=== PATIENT | male | born 1960 | race Caucasian/White ===

== ENCOUNTER → 2019-01-20 14:23 | Outpatient (CLI) | payer BC ==
[~2019-01-20 14:23] MED LIST: BAYER CHEWABLE81 MG PO; FLINTSTONE1 TAB.CHEW PO; LOPID600 MG PO
--- NOTE | 2019-01-26 18:38 | EC ---
PATIENT:ANGELINA ESPOSITO DATE OF SERVICE: 01/20/19 SEX: M MEDICAL RECORD: [id number] DATE OF : 56 LOCATION:[facility] AGE OF PATIENT: 58 ADMISSION DATE: 01/20/19 REFERRING PHYSICIAN: INTERPRETING PHYSICIAN: RAMÓN VELA MD ECHOCARDIOGRAM REPORT ECHO CHARGES 4 ECHO COMPLETE Date: 01/20/19 CLINICAL DIAGNOSIS: PALPITATIONS ECHOCARDIOGRAPHIC MEASUREMENTS (adult normal given) AC root (d.<3.7cm) 3.4 cm LV Septum d (<1.2 cm> 1.1 cm Valve Excursion 2.3 cm LV Septum (systole) 1.8 cm Left Atria (s.<4.0cm> 4.2 cm LVPW d(<1.2cm) 1.2 cm RV (d.<2.3cm) 2.9 cm LVPW (sytole) 2.1 cm LV diastole(<5.6CM) 5.1 cm MV E-F(>70mm/sec) cm LV systole 2.3 cm LVOT Diameter 2.2 cm MV exc.(>10mm) cm Est.ejection fraction (50-75%) % DOPPLER: LVIT cm/sec A 57.0 cm/sec E 90.0 cm/sec LA cm/sec RVSP 39.2 mmHg LVOT 118 cm/sec AOP1/2T m/s Asc. Ao 147 cm/sec RVOT 74.0 cm/sec RA cm/sec PA 93.0 cm/sec AV Gradient Peak 8.6 mmHg AV Mean 4.7 mmHg AV Area 3.2 cm MV Gradient Peak 3.6 mmHg MV Mean 1.1 mmHg MV Area cm COMMENTS: OP - HC Manufacturing Accountant: 1 DOTTIE SAUCEDAOE Video Editor: 1 Dr. Vela TAPE# PACS Pericardial Effusion N DATE OF SERVICE: 01/20/2019 FINDINGS: 1. Left ventricular chamber size is within normal limits. Left ventricular systolic function is normal. Overall ejection fraction is estimated at 60%. 2. Left atrium is enlarged at 4.2 cm. Right atrium and right ventricular chamber sizes are as well mildly dilated. 3. Valvular structures have normal structure and motion. 4. Doppler interrogation reveals mild aortic insufficiency, mild mitral regurgitation, and mild tricuspid regurgitation. No other valvular ECHOCARDIOGRAM REPORT [id number] ANGELINA ESPOSITO insufficiency or stenosis. Pulmonary systolic pressure is normal, estimated at 39 mmHg. 5. No evidence of pericardial effusion or left ventricular thrombus. TRANSINT:[id number] Voice Confirmation ID: [id number] DOCUMENT ID: [id number] RAMÓN VELA MD at 1838 CC: [id number] DICTATION DATE: 01/20/19 1613 MECHANICAL MANUFACTURING ENGINEER: 01/20/192025 DEP CLI 01/20/19 [place] [id number] [place] [id number]
== END | disposition home or self-care (01) ==
LOC: D.HCCARDIO 14:23
PROVIDERS: ATTEND Internal Medicine Interventional Cardiology
DX: R00.2 Palpitations (principal)